=== PATIENT | female | born 1970 | race Caucasian/White ===

== ENCOUNTER → 2021-01-08 | Outpatient (CLI) | payer BC ==
[2021-01-08 14:08] LABS: RED BLOOD COUNT 4.11 M/UL (4.00-5.10); WHITE BLOOD COUNT 4.6 K/UL (4.5-11.0)
[2021-01-08 14:16] LABS: BUN/CREATININE RATIO 15 (0-10)
== END ==
LOC: LAB 13:00
PROVIDERS: Internal Medicine
DX: M25.50 Pain in unspecified joint (principal); M79.7 Fibromyalgia; R76.8 Other specified abnormal immunological findings in serum; R87.89 Other abnormal findings in specimens from female genital organs; R53.83 Other fatigue; R50.9 Fever, unspecified
CPT/HCPCS: 36415; 80053; 83520; 85025; 85652; 86140